=== PATIENT | female | born 1995 | race African-American/Black ===

== ENCOUNTER 2017-11-04 14:07 | Emergency (ER) | payer MEDICAID ==
--- NOTE | 2017-11-04 15:07 | EDPHY ---
H & P Stated Complaint: c/o bilat upper abd x 3 days, no other sx Time Seen by Provider: 11/04/17 15:07 HPI/ROS: CHIEF COMPLAINT: Abdominal pain HISTORY OF PRESENT ILLNESS: The patient presents the ED with a 3 day history of upper abdominal pain. She denies associated vomiting, diarrhea, hematemesis or melena. The patient denies significant alcohol NSAID usage. She has no significant past medical history. Patient denies surgical history. The patient reports her pain is mild in nature. It does not radiate. She denies any associated urinary complaints. REVIEW OF SYSTEMS: A comprehensive 10 point review of systems is otherwise negative aside from elements mentioned in the history of present illness. Source: Patient Exam Limitations: No limitations - Personal History LMP (Females 10-55): Unknown - Medical/Surgical History Hx Asthma: No Hx Chronic Respiratory Disease: No Hx Diabetes: No Hx Cardiac Disease: No Hx Renal Disease: No Hx Cirrhosis: No Hx Alcoholism: No Hx HIV/AIDS: No Hx Splenectomy or Spleen Trauma: No Other PMH: none - Social History Smoking Status: Never smoked - Physical Exam Exam: General Appearance: Alert, no distress Eyes: Pupils equal and round no pallor or injection ENT, Mouth: Mucous membranes moist Respiratory: There are no retractions, lungs are clear to auscultation Cardiovascular: Regular rate and rhythm Gastrointestinal: Minimal left upper quadrant tenderness, normal bowel sounds, no peritoneal signs. No CVA tenderness Neurological: 5/5 strength all 4 extremities Skin: Warm and dry, no rashes Musculoskeletal: Neck is supple nontender Extremities: symmetrical, full range of motion Psychiatric: Patient is oriented X 3, there is no agitation Constitutional: Initial Vital Signs Temperature (C) 36.7 C 11/04/17 14:21 Heart Rate 67 11/04/17 14:21 Respiratory Rate 16 11/04/17 14:21 Blood Pressure 124/64 H 11/04/17 14:21 O2 Sat (%) 96 11/04/17 14:21 O2 Delivery Mode Room Air Allergies/Adverse Reactions: No Known Allergies Allergy (Unverified 11/04/17 14:25) Home Medications: Medication Instructions Recorded Ranitidine HCl 150 mg PO BID #28 tablet 11/04/17 Medical Decision Making ED Course/Re-evaluation: The patient presents to the ED for evaluation of vague abdominal pain for the past several days. The patient's laboratory studies are unremarkable. The patient was given a GI cocktail in the emergency department. She is feeling better. I re-evaluated the patient at 4:30 p.m.. I will recommend that she begin taking ranitidine 150 mg p. O. Twice a day for the next 2 weeks. She should return to the ED for markedly worsening symptoms or other concerns. Differential Diagnosis: Differential diagnosis considered includes gastritis, peptic ulcer disease, pancreatitis, cholecystitis - Data Points Laboratory Results: Laboratory Results 11/04/17 15:00 11/04/17 15:00 11/04/17 11/04/17 11/04/17 15:00 15:00 15:00 WBC 6.22 10^3/uL 10^3/uL (3.80-9.50) RBC 5.23 10^6/uL 10^6/uL (4.18-5.33) Hgb 12.8 g/dL g/dL (12.6-16.3) Hct 39.9 % % (38.0-47.0) MCV 76.3 fL L fL (81.5-99.8) MCH 24.5 pg L pg (27.9-34.1) MCHC 32.1 g/dL L g/dL (32.4-36.7) RDW 14.3 % % (11.5-15.2) Plt Count 342 10^3/uL 10^3/uL (150-400) MPV 10.4 fL fL (8.7-11.7) Neut % (Auto) 33.1 % L % (39.3-74.2) Lymph % (Auto) 52.4 % H % (15.0-45.0) [place] % (Auto) 9.0 % % (4.5-13.0) Eos % (Auto) 4.5 % % (0.6-7.6) Baso % (Auto) 0.8 % % (0.3-1.7) Nucleat RBC Rel Count 0.0 % % (0.0-0.2) Absolute Neuts (auto) 2.06 10^3/uL 10^3/uL (1.70-6.50) Absolute Lymphs (auto) 3.26 10^3/uL H 10^3/uL (1.00-3.00) Absolute Monos (auto) 0.56 10^3/uL 10^3/uL (0.30-0.80) Absolute Eos (auto) 0.28 10^3/uL 10^3/uL (0.03-0.40) Absolute Basos (auto) 0.05 10^3/uL 10^3/uL (0.02-0.10) Absolute Nucleated RBC 0.00 10^3/uL 10^3/uL (0-0.01) Immature Gran % 0.2 % % (0.0-1.1) Immature Gran # 0.01 10^3/uL 10^3/uL (0.00-0.10) Sodium 142 mEq/L mEq/L (135-145) Potassium 4.4 mEq/L mEq/L (3.3-5.0) Chloride 110 mEq/L mEq/L (97-110) Carbon Dioxide 17 mEq/l L mEq/l (22-31) Anion Gap 15 mEq/L mEq/L (8-16) BUN 10 mg/dL mg/dL (7-23) Creatinine 0.6 mg/dL mg/dL (0.6-1.0) Estimated GFR > 60 Glucose 96 mg/dL mg/dL (70-100) Calcium 9.7 mg/dL mg/dL (8.5-10.4) Total Bilirubin 0.7 mg/dL mg/dL (0.1-1.4) Conjugated Bilirubin 0.3 mg/dL mg/dL (0.0-0.5) Unconjugated Bilirubin 0.4 mg/dL mg/dL (0.0-1.1) AST 35 IU/L IU/L (14-46) ALT 23 IU/L IU/L (9-52) Alkaline Phosphatase 61 IU/L IU/L (38-126) Total Protein 7.6 g/dL g/dL (6.3-8.2) Albumin 4.3 g/dL g/dL (3.5-5.0) Lipase 120 IU/L IU/L (23-300) Beta HCG, Qual NEGATIVE Specimen Hemolysis 106 Medications Given: Discontinued Medications Al Hydroxide/Mg Hydroxide (Maalox Susp) 30 ml PO EDNOW ONE Stop: 11/04/17 15:23 Last Admin: 11/04/17 15:25 Dose: 30 ml Hyoscyamine Sulfate (Levsin, Hyomax-Sl) 0.125 mg PO EDNOW ONE Stop: 11/04/17 15:22 Last Admin: 11/04/17 15:25 Dose: 0.125 mg Lidocaine (Lidocaine 2% Viscous) 5 ml PO EDNOW ONE Stop: 11/04/17 15:22 Last Admin: 11/04/17 15:25 Dose: 5 ml Departure - Departure Disposition: Home, Routine, Self-Care Clinical Impression: Abdominal pain Qualifiers: Abdominal location: left upper quadrant Qualified Code(s): R10.12 - Left upper quadrant pain Condition: Good Instructions: Abdominal Pain (ED) Additional Instructions: 1. Please begin taking ranitidine 150 mg twice a day for the next 2 weeks. 2. Please follow up with a drug purchaser you have been referred to for any unimproved symptoms. 3. Please return to the ED for markedly worsening symptoms or other concerns. Referrals: Severiano Ram MD [Medical Doctor] - As per Instructions
[2017-11-04] MEDS ORDERED: HYOSCYAMINE SULFATE 0.125 MG TAB ONE (15:17)
[2017-11-04] MEDS ORDERED: MAG HYDROX/AL HYDROX/SIMETH 30 ML UDCUP ONE (15:17)
[2017-11-04] MEDS ORDERED: LIDOCAINE 2% VISCOUS 15 ML UDCUP ONE (15:18)
[2017-11-04 15:20] LABS: PLATELET COUNT 342 10^3/uL (150-400)
[2017-11-04] MEDS ORDERED: HYOSCYAMINE SULFATE 0.125 MG TAB PO ONE (15:21)
[2017-11-04] MEDS ORDERED: LIDOCAINE 2% VISCOUS 15 ML UDCUP PO ONE (15:21)
[2017-11-04] MEDS ORDERED: MAG HYDROX/AL HYDROX/SIMETH 30 ML UDCUP PO ONE (15:22)
[2017-11-04 16:16] VITALS: BP 118/72
== END 2017-11-04 16:39 | disposition home or self-care (01) ==
DX: R10.12 Left upper quadrant pain (principal)